=== PATIENT | male | born 1985 | race Caucasian/White ===

== ENCOUNTER 2023-05-31 07:07 | Outpatient (CLI) | payer OTHER, SELFPAY ==
--- NOTE | 2023-05-31 07:20 | MR_ITS ---
WS: [id number] MRI RIGHT KNEE HISTORY: RIGHT KNEE PAIN COMPARISON: None available. Anterior cruciate ligament: Intact. Posterior cruciate ligament: Intact. Medial collateral ligament: Intact. Posterior lateral corner structures: Intact. Medial menisci: Horizontal tear posterior horn extends to the inferior tickler surface. Anterior horn is normal. Lateral meniscus: Intact. Normal signal, size and shape. Extensor mechanism: Distal quadriceps tendon and patellar tendons are intact. Fluid and soft tissue: Small suprapatellar joint effusion. There is a large lobulated cystic mass in the posterior medial knee. This extends over a length of 7 cm and is most consistent with a Guerrero cys t. There is adjacent fluid by the gastrocnemius muscle suggesting partial rupture recently. Osseous and articular structures: Patellofemoral compartment: Normal. Medial compartment: Mild narrowing of the medial compartment. Mild surface fraying of the cartilage a long the weightbearing surface of the femoral condyle and also the tibial plateau. No fractures or ma rrow edema. Lateral compartment: Normal. There is increased edema focally along the medial patellar retinaculum. No full-thickness tear. IMPRESSION: 1. Horizontal tear posterior horn medial meniscus. Tear extends to the inferior articular surface. 2. Large lobulated Guerrero cyst. There is fluid adjacent to the medial head of the gastrocnemius muscle . Findings are suggestive of partial rupture of the Guerrero cyst. 3. Small suprapatellar joint effusion. 4. Mild narrowing medial compartment with surface fraying of the cartilage. 5. Suspect partial tear or sprain involving the medial LEFT patellar retinaculum.
== END 2023-05-31 07:08 | disposition home or self-care (01) ==
PROVIDERS: Visit Provider Orthopaedic Surgery
DX: S83.241A Other tear of medial meniscus, current injury, right knee, initial encounter (principal); X58.XXXA Exposure to other specified factors, initial encounter; M71.21 Synovial cyst of popliteal space [Baker], right knee; M25.461 Effusion, right knee
CPT/HCPCS: 73721

== ENCOUNTER 2023-09-30 12:51 | Emergency (ER) | payer OTHER, SELFPAY ==
--- NOTE | 2023-09-30 12:56 | CT_ITS ---
WS: [id number] CTA OF THE CHEST WITH PULMONARY EMBOLISM PROTOCOL TECHNIQUE: High-resolution contrast enhanced CTA of the chest with coronal and sagittal reformatted i ayanas with pulmonary embolism protocol. MIP images are also reviewed. CLINICAL INFORMATION: dyspnea/tachycardia COMPARISON: None. DLP: 399.[address] scans at [facility] use at least one of these dose optimization techniques: automated e xposure control; mA and/or kV adjustment per patient size (includes targeted exams where dose is matc hed to clinical indication); or iterative reconstruction. FINDINGS: Proximal main pulmonary arteries are normal. Normal segmental and subsegmental pulmonary arteries. No evidence of pulmonary embolus. Normal caliber thoracic aorta. Normal caliber descending thoracic aorta. No mediastinal or hilar lymp hadenopathy. No axillary lymphadenopathy. Lungs are well aerated. Slight dependent atelectasis in the lung bases. Adrenal glands are normal. Normal GE junction. Normal thoracic spine. IMPRESSION: 1. No evidence of pulmonary embolus. 2. Lungs are well aerated. Trace dependent atelectasis in the lung bases. 3. No other suspicious findings.
--- NOTE | 2023-09-30 13:01 | ECG_ITS ---
[facility] Test Date: 2023-09-30 Pat Name: Lucas Su Department: Room: Gender: Male Health Advocate: : 1985 Requested By: Ismael Smith Order Number: [id number] Salmon MD: Tato Cramer M.D. Measurements Intervals [place] Rate: 90 P: 66 CT: 167 QRS: 53 QRSD: 81 T: 71 QT: 338 QTc: 415 Interpretive Statements SINUS RHYTHM No previous ECG available for comparison Electronically Signed On 09-30-2023 15:43:47 CIRCULAR SAWYER STONE by Tato Cramer M.D. [id number]
[2023-09-30 13:07] VITALS: BP 132/85; PULSE 92; TEMP 36.7; O2SAT 98; BMI 24.6
--- NOTE | 2023-09-30 13:17 | W.ED.SOB ---
HPI - SOB/Dyspnea General: Chief Complaint: Shortness of Breath/Dyspnea Stated Complaint: POSSIBLE PE Time Seen by Provider: 09/30/23 12:55 Source: patient Mode of arrival: ambulatory History of Present Illness: HPI Narrative: 38-year-old male approximately 3 months ago had a knee procedure done since that time his heart rate resting has seemed to be accelerated and he has been short of breath with minimal activity activities that normally he is able to tolerate without any difficulty. 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 He normally is quite physically active does not smoke has no history of DVT PE or coronary artery disease MD elicited complaint: shortness of breath Associated symptoms: Deny chest pain, fever(s) or hemoptysis Review of Systems Const: Denies: fever(s) or chills Card: Denies: chest pain Resp: Reports: dyspnea; Denies: productive cough, non-productive cough, wheezing or hemoptysis Physical Exam Const: GENERAL APPEARANCE: cooperative and comfortable ORIENTATION/CONSCIOUSNESS: Yes awake HENMT: COMMON NORMALS: normocephalic, atraumatic and hearing grossly normal bilaterally HEAD & SCALP: normocephalic and atraumatic Course Vital Signs: Vital signs: Vital Signs Temperature 98.1 F 09/30/23 13:07 Pulse Rate 92 09/30/23 13:07 Blood Pressure 132/85 09/30/23 13:28 Pulse Oximetry 98 09/30/23 13:07 Oxygen Delivery Me thod Room Air 09/30/23 13:07 MDM - SOB/Dyspnea Medical Decision Making CTA chest negative for any infiltrate pulmonary emboli or effusions. Encourage patient to follow-up with his primary care doctor or with cardiology and pulmonology if he has persistent symptoms. Reviewed CT findings with the patient EKG shows a mild sinus tachycardia with no acute ST changes Medical Records I reviewed the patient's medical records. Lab Data I reviewed the patient's lab results. All radiology interpretation(s) finalized by discharge Discharge Plan Discharge Patient Disposition: Home Clinical Impression: Dyspnea Condition: Stable Discharge Orders: Discharge ED (Routine); Ordered 09/30/23 Ordered By: Ismael Phelps Discharge Diet: Usual diet Discharge Activity: Resume usual activity Patient Instructions: Opioid Safety, Pain Management Activity Restrictions/Additional Instructions: Thank you for choosing [facility] for your healthcare needs today. Please realize this is an emergency room and that we are providing you with a medical screening exam and this may not be complete and all inclusive of all the testing and or work up that you may need to determine your ailment or severity of your illness. It is very important that you follow up as instructed or that you return to the Emergency Department should you have concerns or if your condition changes or worsens in any way. Will contact you with results of the CT scan Coding Level of Care Code ED [employer] Work[employer] for Roya Capellan
[2023-09-30 13:28] VITALS: BP 132/85
[2023-09-30] MEDS: iohexol 350 mg/mL 500 mL Btl (per mL) IV (13:30)
== END 2023-09-30 14:07 | disposition home or self-care (01) ==
PROVIDERS: Emergency Provider Family Medicine
DX: R06.00 Dyspnea, unspecified (principal)
CPT/HCPCS: 71275; 93005; 99285; Q9967